=== PATIENT | female | born 1940 | race Caucasian/White ===

== ENCOUNTER 2019-07-19 01:38 | Emergency (ER) | payer OTHER, MEDICAID ==
[~2019-07-19] VITALS: Ht 160 cm; Wt 127.0 kg
[2019-07-19 01:42] VITALS: Ht 160 cm; Wt 127.0 kg
[2019-07-19 07:16] VITALS: BP 158/74
== END 2019-07-19 07:16 | disposition home or self-care (01) ==
LOC: ED 01:38
DX: S80.02XA Contusion of left knee, initial encounter (principal); E66.01 Morbid (severe) obesity due to excess calories; I50.9 Heart failure, unspecified; N15.9 Renal tubulo-interstitial disease, unspecified; Z88.2 Allergy status to sulfonamides; Z88.5 Allergy status to narcotic agent; Z88.8 Allergy status to other drugs, medicaments and biological substances; W19.XXXA Unspecified fall, initial encounter; Y93.89 Activity, other specified; Y92.89 Other specified places as the place of occurrence of the external cause; Y99.8 Other external cause status; K21.9 Gastro-esophageal reflux disease without esophagitis
CPT/HCPCS: J1885; Q0092